=== PATIENT | male | born 1980 | race American Indian/Alaskan Native ===

== ENCOUNTER 2020-01-01 13:28 | Emergency (ER) | payer SELFPAY ==
--- NOTE | 2020-01-01 14:48 | XRay Report ---
CHEST 2 VIEWS INDICATION / CLINICAL INFORMATION: cough times 1 month. COMPARISON: None available. FINDINGS: SUPPORT DEVICES: None. HEART / MEDIASTINUM: No significant abnormality. LUNGS / PLEURA: No significant pulmonary or pleural abnormality. No pneumothorax. ADDITIONAL FINDINGS: No significant additional findings. IMPRESSION: 1. No acute findings. Signer Name: Maximilian Nassar MD Signed: 01/01/2020 2:43 PM Workstation Name: [id number]
--- NOTE | 2020-01-01 15:47 | Emergency Department Report ---
Minor Respiratory - HPI Chief Complaint: Upper Respiratory Infection Stated Complaint: ASTHMA/COUGH Time Seen by Provider: 01/01/20 14:22 Duration: 1 month Severity: mild Minor Respiratory: Yes Cough, No Rhinorrhea, No Sore Throat, No Able to Tolerate Fluids, No Ear Pain, No Sick Contacts, No Hemoptysis, No Chest Pain, No Shortness of Breath, No Fever Other History: 39-year-old -[place] male presents to the emergency room for 1 month of cough. Patient states that he has been using his asthma medication. Patient comes in requesting for Tussionex cough medication. Patient states that his primary care doctor is in [place] and he is not able to get a refill on his Tussionex. Patient has a past medical history of asthma. ED Review of Systems ROS: Stated complaint: ASTHMA/COUGH Other details as noted in HPI ED Past Medical Hx - Past Medical History Hx Asthma: Yes - Social History Smoking Status: Never Smoker Substance Use Type: None - Medications Home Medications: Home Medications Medication Instructions Recorded Confirmed Last Taken Type Albuterol INH(or & Nicu Only) 2 puff IH QID PRN #1 inhalation 08/10/15 Unknown Rx [ProAir HFA Inhaler] guaiFENesin/DEXTROMETHORPHAN 5 ml PO BID #60 ml 08/10/15 Unknown Rx [Tussin Cough-Chest Congest Liq] predniSONE [Deltasone] 20 mg PO QDAY #5 tab 08/10/15 Unknown Rx Benzonatate [Tessalon Perles] 100 mg PO Q8HR #21 capsule 01/01/20 Unknown Rx Minor Respiratory Exam - Exam General: Vital signs noted. No distress. Alert and acting appropriately. Neurologic: Alert and oriented, no deficits. Musculoskeletal: Unremarkable. ED Course Vital Signs 01/01/20 13:33 Temperature 97.9 F Pulse Rate 86 Respiratory 20 Rate Blood Pressure 147/78 O2 Sat by Pulse 94 Oximetry ED Medical Decision Making - Radiology Data Radiology results: report reviewed Referring Physician:GUTIERREZ BELLPatient Name:TARA ANNPatient ID:[id number] of :[id number]:MaleAccession:[id number] Date:[id number] Status:Finalized Findings [facility] [address] [place] [address] XRay Report Signed Patient: TARA ANN MR#: [id number] : 1980 Acct:[id number] Age/Sex: 39 / M ADM Date: 01/01/20 Loc: ED Attending Dr: Ordering Physician: NICOLAS JACOBS Date of Service: 01/01/20 Procedure(s): XR chest routine 2V Accession Number(s): [id number] cc: NICOLAS JACOBS Fluoro Time In Minutes: CHEST 2 VIEWS INDICATION / CLINICAL INFORMATION: cough times 1 month. COMPARISON: None available. FINDINGS: SUPPORT DEVICES: None. HEART / MEDIASTINUM: No significant abnormality. LUNGS / PLEURA: No significant pulmonary or pleural abnormality. No pneumothorax. ADDITIONAL FINDINGS: No significant additional findings. IMPRESSION: 1. No acute findings. Signer Name: Maximilian Nassar MD Signed: 01/01/2020 2:43 PM Workstation Name: [email or web address] Transcribed By: EKATERINA Dictated By: Maximilian Nassar MD Electronically Authenticated By: Maximilian Nassar MD Signed Date/Time: 01/01/201442 DD/ 42 TD/TT: - Medical Decision Making 39-year-old -[place]ron[place] male presents to the emergency room for 1 month of cough. Patient states that he has been using his asthma medication. Patient comes in requesting for Tussionex cough medication. Patient states that his primary care doctor is in [place] and he is not able to get a refill on his Tussionex. Patient has a past medical history of asthma. Chest x-ray is negative for any acute abnormalities. Patient be given a prescription for Tessalon Perles. Continue with your asthmatic medications. Critical care attestation.: If time is entered above; I have spent that time in minutes in the direct care of this critically ill patient, excluding procedure time. ED Disposition Clinical Impression: Chronic cough Disposition: DC-01 TO HOME OR SELFCARE Is pt being admited?: No Does the pt Need Aspirin: No Condition: Stable Instructions: Chronic Cough (ED), Antitussive/Expectorant (By mouth) Additional Instructions: Chest x-ray is negative for any acute findings. Take Tessalon Perles as needed for cough. Follow-up with your primary care provider. Continue all chronic asthma medication as been prescribed in the past. Prescriptions: Benzonatate [Tessalon Perles] 100 mg PO Q8HR #21 capsule Referrals: PRIMARY CARE, [Primary Care Provider] - 3-5 Days Forms: Work/School Release Form(ED)
[2020-01-01 16:15] VITALS: BP 136/80
== END 2020-01-01 16:15 | disposition home or self-care (01) ==
LOC: ED 13:28
DX: R05 Cough (principal); J45.909 Unspecified asthma, uncomplicated; Z79.899 Other long term (current) drug therapy
CPT/HCPCS: 71046